=== PATIENT | female | born 1990 | race Caucasian/White ===

== ENCOUNTER 2021-01-21 13:26 | Day surgery (SDC) | payer BC ==
[~2021-01-21 13:26] MED LIST: Iopamidol-370 76% 500 ML 1 ML ONE
[2021-01-21] MEDS ORDERED: Morphine 4 MG/ML VIAL ONE (13:55)
[2021-01-21] MEDS ORDERED: Ondansetron PF 4 MG/2 ML Vial ONE ×2 (13:55→17:26)
[2021-01-21 14:00] LABS: #Eosinphils 0.1 thou/uL (0.0-0.7); #Lymphocytes 1.8 thou/uL (1.20-3.40); #Monocytes 0.4 thou/uL (0.11-0.59); #Neutrophils 8.4 thou/uL (1.40-6.50); %Basophils 0.3 % (0.0-1.0); %Eosinophils 0.5 % (0.0-10.0); %Monocytes 3.9 % (0.0-10.0); %Neutrophils 78.2 % (42.0-75.0); Hemoglobin 14.3 g/dL (12.0-16.0); Mean Corpuscular HGB CONC 34.7 g/dL (32.0-36.0); Mean Corpuscular Hemoglobin 32.5 pg (27.0-31.0); Mean Corpuscular Volume 93.8 fL (78.0-98.0); Mean Platelet Volume 8.4 fL (7.4-10.4); Platelet Count 234 thou/uL (130-400); RBC Distribution Width 10.9 % (11.5-14.5); Red Blood Cell (RBC) Count 4.39 mill/uL (4.20-5.40); White Blood Cell (WBC) Count 10.7 thou/uL (4.8-10.8)
[2021-01-21 14:22] LABS: ALT (SGPT) 15 U/L (8-55); AST (SGOT) 14 U/L (5-34); Albumin 4.3 g/dL (3.5-5.0); Alkaline Phosphatase 54 U/L (40-110); Anion Gap 13 mmol/L (10-20); BUN (Urea Nitrogen) 8 mg/dL (7.0-18.7); Bilirubin, Total 1.5 mg/dL (0.2-1.2); Calc. Creatinine Clearance 0 mL/min (70-130); Calcium 9.4 mg/dL (7.8-10.44); Carbon Dioxide 20 mmol/L (22-29); Chloride 108 mmol/L (98-107); Globulin 2.3 g/dL (2.4-3.5); Glucose 96 mg/dL (70-105); Lipase 14 U/L (8-78); Potassium 4.1 mmol/L (3.5-5.1); Protein, Total 6.6 g/dL (6.0-8.3); Sodium 137 mmol/L (136-145)
[2021-01-21 14:27] LABS: Bilirubin Negative (Negative); Blood, Urine Negative (Negative); Clarity Clear (Clear); Glucose, Urine (Dipstick) Normal (Negative); Ketone, Urine Negative (Negative); Leukocyte Negative Leu/uL (Negative); Nitrite Negative (Negative); Protein, Urine (Dipstick) Negative (Neg-Trace); Specific Gravity, Urine 1.014 (1.002-1.036); Urobilinogen Normal mg/dL (Less than 2); pH, Urine 5.5 (5.0-9.0)
[2021-01-21 14:28] LABS: Pregnancy Test - Urine (BHCG) Negative (Negative); Pregu Control Background? CLEAR/WHITE (CLR/WHITE); Pregu Control Bar Appear? YES (CONTROL BAR); Specific Gravity 1.014 (1.002-1.036)
[2021-01-21] MEDS ORDERED: Piperacillin/Tazobactam 4.5 GM VIAL ONE (15:33)
[2021-01-21 16:37] LABS: SARS-CoV-2 NAA Rapid Test Not Detected (NotDetected)
[2021-01-21] MEDS ORDERED: Bupivacaine 0.25% HCL 30 ML VIAL ONE (17:06)
[2021-01-21] MEDS ORDERED: Lidocaine 1% w/Epinephrine 1:100K 20 ML VIAL ONE (17:06)
[2021-01-21] MEDS ORDERED: HYDROmorphone 0.5 MG/0.5 ML SYRINGE ONE (17:08)
[2021-01-21] MEDS ORDERED: Lidocaine 2 gm/D5W 500 ml 500 ML ONE (17:08)
[2021-01-21] MEDS ORDERED: Fentanyl 100 MCG/2 ML VIAL ONE ×2 (17:08→18:33)
[2021-01-21] MEDS ORDERED: Midazolam HCl 2 mg/2 ml Vial ONE (17:08)
[2021-01-21] MEDS ORDERED: Lidocaine 2% Jelly 5 ML TUBE ONE (17:08)
[2021-01-21] MEDS ORDERED: Succinylcholine 200 MG/10 ml SYRINGE FS ONE (17:26)
[2021-01-21] MEDS ORDERED: Dexamethasone 20 MG/5 ML VIAL ONE (17:26)
[2021-01-21] MEDS ORDERED: Ketorolac Tromethamine 30 MG/ML VIAL ONE (17:26)
[2021-01-21] MEDS ORDERED: Glycopyrrolate 0.2 MG/ML 5 ML SYRINGE ONE (17:26)
[2021-01-21] MEDS ORDERED: Lidocaine 1% PF 5 ML VIAL ONE (17:26)
[2021-01-21] MEDS ORDERED: PROPOFOL 200 MG/20 ML VIAL ONE (17:26)
[2021-01-21] MEDS ORDERED: Rocuronium Bromide 10 MG/ML (10ML VIAL) ONE (17:26)
[2021-01-21] MEDS ORDERED: Ondansetron HCl/PF 4 MG/2 ML Vial IVP PRN (17:50)
[2021-01-21] MEDS ORDERED: Promethazine HCl 25 MG/ML VIAL IM PRN (17:50)
[2021-01-21] MEDS ORDERED: Promethazine HCl 25 MG/ML VIAL SLOW IVP PRN (17:50)
[2021-01-21] MEDS ORDERED: HYDROmorphone 2 MG/ML VIAL SLOW IVP PRN (17:50)
[2021-01-21] MEDS ORDERED: HYDROcodone/Acetaminophen 5/325 mg Tablet ONE (18:29)
== END 2021-01-21 19:24 | disposition home or self-care (01) ==
LOC: ERS 13:26 → SDC/OP 16:53
PROVIDERS: ATTEND Surgery
PROC: 0DTJ4ZZ Resection of Appendix, Percutaneous Endoscopic Approach (ICD-10-PCS; principal; 2021-01-21)
DX: K35.80 Unspecified acute appendicitis (principal); N20.0 Calculus of kidney; K57.30 Diverticulosis of large intestine without perforation or abscess without bleeding; Z88.8 Allergy status to other drugs, medicaments and biological substances; Z20.822 Contact with and (suspected) exposure to COVID-19
CPT/HCPCS: 36415; 74177; 80053; 81003; 81025; 83690; 85025; 88304; 96365; 96375; J1100; J1170; J1885; J2001; J2250; J2270; J2405; J2543; J2704; J3010; Q9967; S0020; U0002

== ENCOUNTER 2021-05-15 05:34 | Emergency (ER) | payer BC ==
[2021-05-15 06:13] LABS: Bacteria/HPF None Seen HPF (None Seen); Bilirubin Negative (Negative); Blood, Urine 3+ (Negative); Clarity Clear (Clear); Glucose, Urine (Dipstick) Normal (Negative); Ketone, Urine Negative (Negative); Leukocyte Negative Leu/uL (Negative); Nitrite Negative (Negative); Protein, Urine (Dipstick) Negative (Neg-Trace); RBC/HPF Greater than 50 HPF (0-3); Specific Gravity, Urine 1.018 (1.002-1.036); Urobilinogen Normal mg/dL (Less than 2); pH, Urine 5.5 (5.0-9.0)
[2021-05-15] MEDS ORDERED: Ondansetron PF 4 MG/2 ML Vial ONE ×2 (06:29→08:55)
[2021-05-15] MEDS ORDERED: Morphine 4 MG/ML VIAL ONE ×2 (06:29→08:55)
[2021-05-15] MEDS ORDERED: Ketorolac Tromethamine 30 MG/ML VIAL ONE (06:29)
[2021-05-15 07:13] LABS: Anion Gap 14 mmol/L (10-20); BUN (Urea Nitrogen) 12 mg/dL (7.0-18.7); Calc. Creatinine Clearance 0 mL/min (70-130); Carbon Dioxide 20 mmol/L (22-29); Chloride 110 mmol/L (98-107); Hemoglobin 14.5 g/dL (12.0-16.0); Mean Corpuscular HGB CONC 34.5 g/dL (32.0-36.0); Mean Corpuscular Hemoglobin 32.7 pg (27.0-31.0); Mean Corpuscular Volume 94.9 fL (78.0-98.0); Mean Platelet Volume 8.9 fL (7.4-10.4); Platelet Count 243 thou/uL (130-400); Potassium 3.5 mmol/L (3.5-5.1); RBC Distribution Width 11.1 % (11.5-14.5); Red Blood Cell (RBC) Count 4.42 mill/uL (4.20-5.40); Sodium 140 mmol/L (136-145); White Blood Cell (WBC) Count 6.6 thou/uL (4.8-10.8)
[2021-05-15 07:14] LABS: ALT (SGPT) 24 U/L (8-55); AST (SGOT) 17 U/L (5-34); Albumin 4.5 g/dL (3.5-5.0); Alkaline Phosphatase 55 U/L (40-110); Bilirubin, Total 0.6 mg/dL (0.2-1.2); Calcium 9.6 mg/dL (7.8-10.44); Globulin 2.7 g/dL (2.4-3.5); Glucose 125 mg/dL (70-105); Lipase 26 U/L (8-78); Protein, Total 7.2 g/dL (6.0-8.3)
[2021-05-15 07:26] LABS: BHCG - Serum Negative (NEGATIVE); Pregs Control Background? CLEAR/WHITE (CLR/WHITE); Pregs Control Bar Appear? YES (CONTROL BAR)
[2021-05-15 07:30] LABS: Lymphocytes 46 % (21-51); MDiff Complete? YES; Monocytes 5 % (0-10); Neutrophil 34 % (42-75); Platelet Morphology Comment Appears Adequate; RBC Morphology Normal; Reactive Lymphocytes 15 % (0-10)
[2021-05-15] MEDS ORDERED: Tamsulosin HCl 0.4 MG CAP PO SCH (08:15)
== END 2021-05-15 10:00 | disposition home or self-care (01) ==
LOC: ERS 05:34
DX: N13.2 Hydronephrosis with renal and ureteral calculous obstruction (principal)
CPT/HCPCS: 74176; 80053; 81003; 81015; 83690; 84703; 85025; 96374; 96375; 96376; J1885; J2270; J2405